=== PATIENT | male | born 1980 | race Caucasian/White ===

== ENCOUNTER → 2017-10-01 | Outpatient (CLI) | payer OTHER ==
[~2017-10-01] MED LIST: OXYC1CAP PO
[2017-10-01 08:04] LABS: SEMEN WET PREP WBC 0-2 /HPF; WET PREP SPERM 0-3 NON-MOTILE /HPF (NONE SEEN)
== END ==
LOC: CLAB 07:45
PROVIDERS: ATTEND Urology
DX: Z30.2 Encounter for sterilization (principal)
CPT/HCPCS: 89321

== ENCOUNTER → 2017-12-19 | Outpatient (CLI) | payer OTHER ==
[2017-12-19 09:13] LABS: WET PREP SPERM RARE/NON-MOTILE /HPF (NONE SEEN)
== END ==
LOC: CLAB 08:45
PROVIDERS: ATTEND Urology
DX: Z98.52 Vasectomy status (principal)
CPT/HCPCS: 89321